=== PATIENT | male | born 1970 | race Caucasian/White ===

== ENCOUNTER 2018-05-11 01:36 | Emergency (ER) | payer SELFPAY ==
[~2018-05-11] VITALS: Ht 180.3 cm; Wt 85.0 kg
[2018-05-11 01:52] VITALS: BP 125/68; PULSE 103; RESP 18; TEMP 99.2; O2SAT 98
[2018-05-11] MEDS ORDERED: KETAMINE HCL 500 MG/10 ML VIAL IM STA (01:55)
--- NOTE | 2018-05-11 02:33 | RADRPT ---
EXAM DATE: 05/11/2018 2:22 AM EDT AGE/SEX: 48 years / Male INDICATIONS: Possible drug overdose, altered mental status. CLINICAL DATA: This is the patient's initial encounter. Patient reports that signs and symptoms have been present for 1 day and indicates a pain score of Nonresponsive. MEDICAL/SURGICAL HISTORY: . Substance abuse. Appendectomy. RADIATION DOSE: 66.34 CTDI (mGy) COMPARISON: No prior exams available for comparison. TECHNIQUE: CT of the head without contrast. Using automated exposure control and adjustment of the mA and/or kV according to patient size, radiation dose was kept as low as reasonably achievable to ob tain optimal diagnostic quality images. DICOM format image data is available electronically for revi ew and comparison. FINDINGS: Cerebrum: The ventricles are normal for age. No evidence of midline shift, mass lesion, hemorrhage or acute infarction. No extraaxial fluid collections are seen. Posterior Fossa: The cerebellum and brainstem are intact. The 4th ventricle is midline. The cerebe llopontine angle is unremarkable. Extracranial: The visualized portion of the orbits is intact. Skull: The calvaria is intact. No evidence of skull fracture. CONCLUSION: Negative CT examination the head. Electronically signed by: Chuy Conway MD 05/11/2018 2:32 AM EDT
--- NOTE | 2018-05-11 02:39 | RADRPT ---
EXAM DATE: 05/11/2018 2:29 AM EDT AGE/SEX: 48 years / Male INDICATIONS: Right hand injury. Swelling. CLINICAL DATA: This is the patient's initial encounter. Patient reports that signs and symptoms have been present for 1 day and indicates a pain score of Nonresponsive. MEDICAL/SURGICAL HISTORY: None. None. COMPARISON: No prior exams available for comparison. FINDINGS: Bony structures are intact and in normal alignment. Osseous density is normal. Soft tissues are unre markable. No radiopaque foreign bodies seen. CONCLUSION: Negative right hand series. Electronically signed by: Chuy Conway MD 05/11/2018 2:37 AM EDT
[2018-05-11] MEDS ORDERED: AMMONIA AROMATIC INHALANT 0.33 ML NASAL ONE (03:15)
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
== END 2018-05-11 03:23 ==
LOC: NEPE 01:36
DX: S60.221A Contusion of right hand, initial encounter (principal); S09.90XA Unspecified injury of head, initial encounter; R45.1 Restlessness and agitation; W22.8XXA Striking against or struck by other objects, initial encounter; Z72.0 Tobacco use
CPT/HCPCS: 70450; 73120; 96372